=== PATIENT | female | born 1985 | race Two or more races ===

== ENCOUNTER → 2020-04-03 | Outpatient (CLI) | payer MEDICAID ==
[~2020-04-03] MED LIST: CEFAZOLIN SODIUM 1000MG/VIAL ONE; EPHEDRINE SULFATE 50MG/ML VIAL ONE; FENTANYL CITRATE/PF 50MCG/ML 2ML VIAL ONE; FERR325T6 MT; GLYCOPYRROLATE 0.2 MG/ML 2ML VIAL ONE; IBUP-2030 PO; KETOROLAC 30MG/ML VIAL ONE; MORPHINE SULFATE/PF 1MG/ML 10ML AMP ONE; MULT-1146 MT; ONDANSETRON HCL 4MG/2ML INJ ONE; OXYTOCIN 10 UNITS/ML 1ML ONE; PHENYLEPHRINE HCL 10 MG/ML 1ML (IV VIAL) IV ONE
== END | disposition home or self-care (01) ==
LOC: LAB 10:23
PROVIDERS: ATTEND Obstetrics & Gynecology
DX: Z01.818 Encounter for other preprocedural examination (principal); Z11.59 Encounter for screening for other viral diseases
CPT/HCPCS: U0003-CS

== ENCOUNTER 2020-04-06 06:13 | Inpatient (IN) | payer MEDICAID ==
[~2020-04-06] VITALS: Ht 165.1 cm; Wt 91.6 kg
[2020-04-06] MEDS ORDERED: LACTATED RINGERS 1,000 ML IV SCH (08:05)
[2020-04-06] MEDS ORDERED: DEXT 5%/LR + PITOCIN 20UNITS/L 1,000 ML IV SCH ×2 (08:05→11:49)
[2020-04-06] MEDS ORDERED: METHYLERGONOVINE MALEATE 0.2 MG/ML IM PRN (08:15)
[2020-04-06] MEDS ORDERED: CITRIC ACID/SODIUM CITRATE SOLN 30ML UDC PO SCH (08:15)
[2020-04-06] MEDS ORDERED: CARBOPROST TROMETHAMINE 250 MCG/ML AMPUL IM PRN (08:15)
[2020-04-06 08:32] LABS: BASOPHILS % 0.5 % (0.0-2.0); EOSINOPHILS % 1.1 % (0.0-5.0); HEMATOCRIT. 36.7 % (36.0-48.0); HEMOGLOBIN. 12.8 g/dL (12.0-16.0); LYMPHOCYTES % 26.4 % (20.0-50.0); MEAN CORPUSCULAR VOLUME 91.9 fL (81.0-99.0); MEAN PLATELET VOLUME 9.6 fl (7.4-10.4); MONOCYTES % 4.9 % (2.0-8.0); NEUTROPHILS % 67.1 % (40.0-76.0); PLATELET 222 x1000/uL (130-400); RED BLOOD CELL COUNT 3.99 mill/uL (4.2-5.4); RED CELL DISTRIBUTION WIDTH 14.2 % (11.6-14.6)
[2020-04-06 08:42] LABS: CLARITY URINE CLEAR (CLEAR); COLOR URINE YELLOW (YELLOW); KETONES URINE NEGATIVE (NEGATIVE); LEUKOCYTE ESTERASE URINE NEGATIVE (NEGATIVE); NITRITE URINE NEGATIVE (NEGATIVE); OCCULT BLOOD URINE NEGATIVE (NEGATIVE); PROTEIN URINE 2+ (NEGATIVE); SPECIFIC GRAVITY URINE 1.014 (1.005-1.030); UROBILINOGEN URINE 0.2 E.U./dL (0.2-1.0)
[2020-04-06 08:53] LABS: INR 0.9; PARTIAL THROMBOPLASTIN TIME 25.9 sec (23.4-31.0); PROTHROMBIN TIME 9.9 sec (9.6-11.0)
[2020-04-06 09:00] LABS: *AMPHETAMINES SCREEN URINE NEGATIVE (NEGATIVE); *BARBITURATES SCREEN URINE NEGATIVE (NEGATIVE); *BENZODIAZEPINES SCREEN URINE NEGATIVE (NEGATIVE); *COCAINE SCREEN URINE NEGATIVE (NEGATIVE); METHADONE URINE SCREEN NEGATIVE (NEGATIVE); OPIATES URINE SCREEN NEGATIVE (NEGATIVE)
[2020-04-06 09:01] LABS: CANNABINOID URINE SCREEN NEGATIVE (NEGATIVE); PHENCYCLIDINE URINE SCREEN NEGATIVE (NEGATIVE)
[2020-04-06] MEDS ORDERED: KETOROLAC 60MG/2ML VIAL IM ONE (11:21)
[2020-04-06] MEDS ORDERED: DIPHENHYDRAMINE 50MG/ML VIAL ONE (11:21)
[2020-04-06] MEDS ORDERED: IBUPROFEN 400MG TABLET PO PRN (12:00)
[2020-04-06] MEDS ORDERED: BISACODYL 10MG SUPP PR PRN (12:00)
[2020-04-06] MEDS ORDERED: RHO(D) IMMUNE GLOBULIN 300 MCG/SYR IM PRN (12:00)
[2020-04-06] MEDS ORDERED: KETOROLAC 30MG/ML VIAL IV PRN (12:00)
[2020-04-06 12:12] LABS: HEPATITIS B SURFACE ANTIGEN NEGATIVE
[2020-04-06] MEDS ORDERED: BUTORPHANOL TARTRATE 2 MG/ML VIAL IV PRN (12:15)
[2020-04-06] MEDS ORDERED: NALOXONE HCL 0.4 MG/ML 1ML VIAL IV PRN (12:15)
[2020-04-06] MEDS ORDERED: DIPHENHYDRAMINE 50MG/ML VIAL IV PRN (12:15)
[2020-04-06 15:00] VITALS: BP 117/63
[2020-04-06 15:15] VITALS: BP 94/47
[2020-04-06 16:00] VITALS: BP 100/61
[2020-04-06] MEDS: KETOROLAC 30MG/ML VIAL IV SCH (17:59)
[2020-04-06 19:10] VITALS: BP 100/56
[2020-04-06 23:45] VITALS: BP 108/60
[2020-04-07] MEDS: KETOROLAC 30MG/ML VIAL IV SCH
[2020-04-07 04:00] VITALS: BP 105/65
[2020-04-07 06:59] LABS: BASOPHILS % 0.6 % (0.0-2.0); EOSINOPHILS % 1.8 % (0.0-5.0); HEMATOCRIT. 33.7 % (36.0-48.0); HEMOGLOBIN. 11.8 g/dL (12.0-16.0); LYMPHOCYTES % 30.3 % (20.0-50.0); MEAN CORPUSCULAR HEMOGLOBIN 32.5 pg (28.0-32.0); MEAN PLATELET VOLUME 9.4 fl (7.4-10.4); MONOCYTES % 5.5 % (2.0-8.0); NEUTROPHILS % 61.8 % (40.0-76.0); PLATELET 196 x1000/uL (130-400); RED BLOOD CELL COUNT 3.62 mill/uL (4.2-5.4); RED CELL DISTRIBUTION WIDTH 14.2 % (11.6-14.6)
[2020-04-07] MEDS: IBUPROFEN 800MG TABLET PO PRN ×3 (07:36→21:41)
[2020-04-07 08:00] VITALS: BP 95/56
[2020-04-07] MEDS: ACETAMINOPHEN WITH CODEINE 300/30MG TABLET PO PRN ×2 (12:46→17:45)
[2020-04-07 14:30] VITALS: BP 101/54
[2020-04-07 22:00] VITALS: BP 102/50
[2020-04-08] MEDS: ACETAMINOPHEN WITH CODEINE 300/30MG TABLET PO PRN ×2 (01:24→08:20)
[2020-04-08 05:40] VITALS: BP 105/63
[2020-04-08] MEDS ORDERED: MULT-1146 MT (07:17)
[2020-04-08] MEDS ORDERED: IBUP-2030 PO (07:17)
[2020-04-08] MEDS ORDERED: FERR325T6 MT (07:17)
[2020-04-08 08:00] VITALS: BP 103/46
[2020-04-08] MEDS: IBUPROFEN 800MG TABLET PO PRN (08:20)
== END 2020-04-08 12:50 | disposition home or self-care (01) | DRG 540 ==
LOC: 8 EST LDRP 06:13 → 8EST 14:39
PROVIDERS: ADMIT Obstetrics & Gynecology; ATTEND Obstetrics & Gynecology
PROC: 10D00Z1 Extraction of Products of Conception, Low, Open Approach (ICD-10-PCS; principal; 2020-04-06)
DX: O34.211 Maternal care for low transverse scar from previous cesarean delivery (principal); Z37.0 Single live birth; Z3A.39 39 weeks gestation of pregnancy
CPT/HCPCS: 36415; 80305; 81003; 82947; 85025; 86592; 86703; 86762; 86850; 86900; 87340; 88307; J0690; J1200; J1885; J2274; J2370; J2405; J2590; J3010; J3490